=== PATIENT | female | born 1985 | race Caucasian/White ===

== ENCOUNTER 2020-01-11 17:16 | Emergency (ER) | payer SELFPAY ==
[~2020-01-11] VITALS: Ht 162.6 cm; Wt 77.3 kg
[2020-01-11 17:21] VITALS: TEMP 98.1
[2020-01-11] MEDS ORDERED: PRIL40 PO (17:36)
[2020-01-11] MEDS ORDERED: REMERON SOLTAB45 MG PO (17:37)
[2020-01-11 18:09] VITALS: BP 112/68; PULSE 84
== END 2020-01-11 18:09 | disposition home or self-care (01) ==
LOC: COL.ER 17:16
DX: S81.012A Laceration without foreign body, left knee, initial encounter (principal); F41.9 Anxiety disorder, unspecified; F90.9 Attention-deficit hyperactivity disorder, unspecified type; F17.210 Nicotine dependence, cigarettes, uncomplicated

== ENCOUNTER 2021-05-19 17:10 | Emergency (ER) | payer MEDICAID ==
[~2021-05-19 17:10] MED LIST: PRIL40 PO; REMERON SOLTAB45 MG PO
[2021-05-19 18:09] VITALS: BP 115/70; PULSE 72; TEMP 98.5
== END 2021-05-19 19:07 | disposition home or self-care (01) ==
LOC: COL.ER 17:10
DX: J20.9 Acute bronchitis, unspecified (principal); F17.200 Nicotine dependence, unspecified, uncomplicated; Z20.822 Contact with and (suspected) exposure to COVID-19
CPT/HCPCS: J8540